=== PATIENT | female | born 1985 | race Caucasian/White ===

== ENCOUNTER 2016-11-06 07:49 | Emergency (ER) | payer OTHER ==
[2016-11-06 09:04] LABS: BASOPHIL % 0.8 % (0-2); PLATELET COUNT 277 x10^3mcL (130-400)
[2016-11-06 09:24] LABS: CALCIUM 8.7 mg/dL (8.5-10.1); CARBON DIOXIDE 26.3 mmol/L (21-32); CHLORIDE SERUM 106 mmol/L (98-107); CREATININE SERUM 0.6 mg/dL (0.6-1.0); GFR1 > 60 mL/min; GLUCOSE SERUM 104 mg/dL (74-106); POTASSIUM SERUM 3.6 mmol/L (3.5-5.1); SODIUM SERUM 141 mmol/L (136-145)
[2016-11-06 09:31] LABS: ALBUMIN 3.7 g/dL (3.4-5.0); ALKALINE PHOSPHATASE 95 U/L (46-116); ALT/SGPT 28 U/L (14-59); AMYLASE 54 U/L (25-115); AST/SGOT 20 U/L (15-37); BILIRUBIN TOTAL 0.43 mg/dL (0.20-1.00); LIPASE 159 IU/L (73-393); TOTAL PROTEIN, SERUM 8.1 g/dL (6.4-8.2)
[2016-11-06 10:43] LABS: rbc morphology (normal/abnorm) ABNORMAL (NORMAL)
[2016-11-06 16:39] VITALS: BP 101/60
== END 2016-11-06 16:39 | disposition home or self-care (01) ==
LOC: ED 07:49
PROVIDERS: Emergency Medicine
DX: R10.13 Epigastric pain (principal); R11.10 Vomiting, unspecified; R19.7 Diarrhea, unspecified; E86.0 Dehydration; R50.9 Fever, unspecified
CPT/HCPCS: 83880; 87046; 87046-59; J2405; J3010; J7030

== ENCOUNTER 2018-05-03 12:37 | Emergency (ER) | payer OTHER ==
[~2018-05-03] VITALS: Ht 154.9 cm; Wt 43.1 kg
[2018-05-03 12:45] VITALS: Ht 154.9 cm; Wt 43.1 kg
[2018-05-03 13:37] LABS: BASOPHIL % 0.8 % (0-2); PLATELET COUNT 212 x10^3mcL (130-400); RED CELL DISTRIBUTION WIDTH 14.4 % (11.5-14.5)
[2018-05-03 14:40] VITALS: BP 94/63
== END 2018-05-03 14:41 | disposition home or self-care (01) ==
LOC: ED 12:37
PROVIDERS: Emergency Medicine
DX: R10.31 Right lower quadrant pain (principal); R11.2 Nausea with vomiting, unspecified
CPT/HCPCS: 36415; J1885; Q0162

== ENCOUNTER 2018-07-04 07:31 | Emergency (ER) | payer OTHER ==
[~2018-07-04] VITALS: Ht 152.4 cm; Wt 44.5 kg
[2018-07-04 07:45] VITALS: Ht 152.4 cm; Wt 44.5 kg
[2018-07-04 10:46] VITALS: BP 94/59
== END 2018-07-04 10:46 | disposition home or self-care (01) ==
LOC: ED 07:31
DX: G56.32 Lesion of radial nerve, left upper limb (principal); Z90.49 Acquired absence of other specified parts of digestive tract
CPT/HCPCS: Q0092

== ENCOUNTER 2020-05-19 08:48 | Emergency (ER) | payer OTHER, SELFPAY ==
[~2020-05-19] VITALS: Ht 152.4 cm; Wt 45.4 kg
[2020-05-19 08:53] VITALS: Ht 152.4 cm; Wt 45.4 kg
[2020-05-19 11:20] VITALS: BP 108/93
== END 2020-05-19 11:20 | disposition home or self-care (01) ==
LOC: ED 08:48
DX: R07.89 Other chest pain (principal); M06.9 Rheumatoid arthritis, unspecified; Z90.49 Acquired absence of other specified parts of digestive tract

== ENCOUNTER 2020-06-13 02:28 | Emergency (ER) | payer OTHER ==
[~2020-06-13] VITALS: Ht 152.4 cm; Wt 46.7 kg
[2020-06-13 02:36] VITALS: Ht 152.4 cm; Wt 46.7 kg
[2020-06-13 04:35] VITALS: BP 111/69
== END 2020-06-13 04:35 | disposition home or self-care (01) ==
LOC: ED 02:28
DX: F12.929 Cannabis use, unspecified with intoxication, unspecified (principal); F41.9 Anxiety disorder, unspecified; M06.9 Rheumatoid arthritis, unspecified; Z90.49 Acquired absence of other specified parts of digestive tract